=== PATIENT | female | born 2000 | race Hispanic/Latino ===

== ENCOUNTER 2022-04-25 10:01 | Emergency (ER) | payer OTHER ==
[~2022-04-25] VITALS: Ht 154.9 cm; Wt 43.1 kg
[2022-04-25 10:03] VITALS: BP 114/76
== END 2022-04-25 12:00 | disposition home or self-care (01) ==
LOC: EDH 10:01
DX: S09.93XA Unspecified injury of face, initial encounter (principal); X58.XXXA Exposure to other specified factors, initial encounter; Y93.89 Activity, other specified; Y92.89 Other specified places as the place of occurrence of the external cause; Y99.8 Other external cause status

== ENCOUNTER 2023-07-09 09:08 | Emergency (ER) | payer OTHER ==
[~2023-07-09] VITALS: Ht 149.9 cm; Wt 36.3 kg
[2023-07-09 09:09] VITALS: BP 141/90; PULSE 98; RESP 16
[2023-07-09 10:29] LABS: BASOPHILS # (AUTO) 0.05 K/uL (0.00-0.20); BASOPHILS % (AUTO) 0.5 % (0.0-5.0); EOSINOPHILS # (AUTO) 0.04 K/uL (0.00-0.70); EOSINOPHILS % (AUTO) 0.4 % (0.0-8.0); HEMATOCRIT 34.6 % (36-48); IMMATURE GRANULOCYTE ABSOLUTE 0.03 K/uL (0-1); LYMPHOCYTES # (AUTO) 1.3 K/uL (1.0-4.8); LYMPHOCYTES % (AUTO) 13.7 % (21.0-51.0); MEAN CORPUSCULAR HEMOGLOBIN 28.4 pg (27.0-33.0); MEAN CORPUSCULAR HGB CONC 33.5 g/dL (32.0-36.0); MEAN CORPUSCULAR VOLUME 84.8 fL (80-100); MONOCYTES # (AUTO) 0.7 K/uL (0.1-1.0); MONOCYTES % (AUTO) 7.6 % (3.0-13.0); NEUTROPHILS # (AUTO) 7.2 K/uL (1.8-7.7); NEUTROPHILS % (AUTO) 77.5 % (40.0-77.0); PLATELET COUNT (AUTO) 407 K/uL (130-400); RED BLOOD CELL COUNT(AUTO) 4.08 MIL/uL (4.00-5.50); RED CELL DISTRIBUTION WIDTH 12.6 % (11.0-15.5); WHITE BLOOD COUNT (AUTO) 9.3 K/uL (4.8-10.8)
[2023-07-09] MEDS: ONDANSETRON 4MG INJ IVP ONE (10:41)
[2023-07-09 10:42] LABS: ALBUMIN 4.1 g/dL (3.5-5.0); CREATININE 0.5 mg/dL (0.5-1.5); POTASSIUM 3.3 mmol/L (3.5-5.1); TOTAL PROTEIN, SERUM 8.1 g/dL (6.0-8.3)
[2023-07-09] MEDS: 0.9%NACL 1000ML 1,000 ML IV ONE (10:42)
[2023-07-09] MEDS: KCL 20 MEQ ERTAB PO ONE (11:47)
[2023-07-09 13:59] LABS: ADD UA MICROSCOPIC YES; APPEARANCE,URINE CLEAR (CLEAR); BILIRUBIN,URINE NEGATIVE (NEGATIVE); COLOR,URINE COLORLESS (YELLOW); GLUCOSE, URINE (UA) NEGATIVE (NEGATIVE); KETONES,URINE 5 mg/dL (NEGATIVE); LEUKOCYTE ESTERASE ,URINE 75 Leu/uL (NEGATIVE); NITRATE,URINE NEGATIVE (NEGATIVE); OCCULT BLOOD,URINE NEGATIVE (NEGATIVE); PROTEIN,URINE NEGATIVE (NEGATIVE); UROBILINOGEN,URINE 0.2 mg/dL (0.2-1.0)
[2023-07-09 14:13] LABS: HCG,QUALITATIVE URINE NEGATIVE (NEGATIVE)
[2023-07-09 14:15] LABS: BACTERIA,URINE RARE /HPF (None Seen); MUCUS,URINE RARE LPF (None Seen); SQUAMOUS EPITHELIAL CELL,UR RARE /HPF (0-2)
[2023-07-09] MEDS ORDERED: ONDA4TAB10 PO (14:34)
[2023-07-09] MEDS ORDERED: DICY20TA2 PO (14:34)
== END 2023-07-09 14:38 | disposition home or self-care (01) ==
LOC: EDH 09:08
DX: K80.50 Calculus of bile duct without cholangitis or cholecystitis without obstruction (principal); E87.6 Hypokalemia
CPT/HCPCS: 99285; 96374; 76705; 80053; 83690; 85025; 87088; 81001; 81025; 36415; J7030; J2405